=== PATIENT | male | born 1975 | race African-American/Black ===

== ENCOUNTER 2017-11-17 08:29 | Day surgery (SDC) | payer OTHER ==
[2017-11-07 12:40] VITALS: BMI 35.2
--- NOTE | 2017-11-17 10:02 | OP ---
Operative Note - Note: Operative Date: 11/17/17 Pre-Operative Diagnosis: rotator cuff tear Operation: shoulder arthroscopy with rotator cuff tear Implants: swivel lock x2 Post-Operative Diagnosis: Same as Pre-op Surgeon: Steven Soto [employer] Teacher: Elver Cole Anesthesia: General, Fractional Operative Report Dictated: Yes
[2017-11-17] MEDS ORDERED: MIDAZOLAM HCL 2 MG/2 ML SINGLE DOSE VIAL ONE ×2 (10:03→10:25)
[2017-11-17] MEDS ORDERED: DEXAMETHASONE SOD PHOSPHATE/PF 10 MG/ML SDV ONE (10:03)
[2017-11-17] MEDS ORDERED: ROPIVACAINE HCL 0.5% 30ML VIAL ONE (10:03)
[2017-11-17] MEDS ORDERED: PROPOFOL 20 ML ONE ×3 (10:36)
[2017-11-17] MEDS ORDERED: SUCCINYLCHOLINE CHLORIDE 200 MG/10 ML VIAL ONE (10:36)
[2017-11-17] MEDS ORDERED: KETOROLAC TROMETHAMINE 30 MG/1 ML VIAL ONE (10:57)
[2017-11-17] MEDS ORDERED: ceFAZolin SODIUM 1 GM VIAL ONE (10:57)
[2017-11-17] MEDS ORDERED: ONDANSETRON 4 MG/2 ML VIAL ONE (10:57)
[2017-11-17] MEDS ORDERED: DEXAMETHASONE SOD PHOSPHATE 4 MG/1 ML VIAL ONE (10:57)
[2017-11-17] MEDS ORDERED: SODIUM CHLORIDE 0.9% P/F 10 ML VIAL IJ ONE (11:31)
[2017-11-17] MEDS ORDERED: PHENYLEPHRINE HCL 10 MG/1 ML SINGLE DOSE VIAL ONE (11:31)
[2017-11-17] MEDS ORDERED: PROMETHAZINE HCL 25 MG/1 ML VIAL IVPUSH PRN (13:16)
[2017-11-17] MEDS ORDERED: oxyCODONE HCL 5 MG TABLET PO PRN ×2 (13:16)
[2017-11-17] MEDS ORDERED: ONDANSETRON 4 MG/2 ML VIAL IVPUSH PRN (13:16)
[2017-11-17 13:24] VITALS: TEMP 98.2
[2017-11-17] MEDS ORDERED: LACTATED RINGERS SOLUTION 1,000 ML IV SCH (13:30)
--- NOTE | 2017-11-17 13:48 | OP ---
DATE OF OPERATION: 11/17/2017 PREOPERATIVE DIAGNOSIS: Left shoulder subscapularis tear. POSTOPERATIVE DIAGNOSIS: Left shoulder subscapularis tear. PROCEDURE: Left shoulder arthroscopy with subscapularis repair. SURGEON: Steven Partida MD ANESTHESIA: General. POSTOPERATIVE CONDITION: Stable. COMPLICATIONS: None. INDICATIONS: This is a 42-year-old gentleman who is suffering from weakness and shoulder pain after an injury at work. He was initially treated conservatively. However, he continued to have discomfort and weakness and therefore is indicated for operative care. Operative risks were reviewed in detail, including bleeding, infection, neurovascular injury, need for further surgery, postoperative pain and stiffness, re-tear. We discussed the postoperative protocol. I reviewed medical risks such as heart attack, stroke, DVT, PE and . Discussed the option of nonoperative care with persistent weakness and progressive atrophy of the subscapularis. I addressed all the patient's questions and concerns. He voiced understanding and elected to proceed. PROCEDURE: Patient was brought to the operating room where he was placed into the beach-chair position. An LMA was inserted. Care was taken to pad all the bony prominences. The left upper extremity was then prepped and draped in the usual sterile fashion. A preoperative dose of antibiotics given and the usual timeout procedure was performed. The patient had been given a block in the preoperative holding areas as well. Examination of the shoulder demonstrated full range of motion at this point. The standard posterior viewing portal was now established and the arthroscope was passed into the joint. Examination of the glenohumeral joint demonstrated some mild articular surface wear. There was some fraying noted at the superior labrum. The anterior portal was established . The superior labrum was probed, demonstrating some partial tearing without any instability. The anterior aspect of the joint was noted to have some fraying on the anterior labrum without any gross tearing. There was synovitis noted as well. The inferior labrum and posterior labrum were also noted to have some synovitis without any gross tearing. Examining the anterior aspect of the joint, including the subscapularis and rotator cuff interval, there was diffuse scarring of this area. No definite subscapularis was visualized. The biceps tendon appeared unremarkable. The supra and infraspinatus appeared unremarkable. The attention was now turned to repair of the subscapularis. The interval was debrided. Any nonviable tissue was debrided. The free end of the subscapularis was identified. It was freed from the surrounding soft tissue utilizing arthroscopic instruments, including the shaver, blunt probes and electrocautery. Two luggage tag-type sutures were passed in the lower portion of the subscapularis and 1 luggage tag was passed in the superior border. Utilizing the shaver as well as electrocautery, the footprint was debrided down to bleeding bone. The 2nd anterior cannula was now inserted in order to better work with the tissues in this region. This was done anterolateral. The inferior sutures were now loaded on to an anchor. The anchor was punched and inserted in the lower portion of the footprint. This was repeated again for the upper portion of the footprint. At this point, the repair was examined and found to be satisfactory. The arthroscope was now passed into the subacromial space. Dense bursitis was noted. This was debrided. No gross tears were seen of the rotator cuff here. Given the debridement of the interval, there was a large opening where the biceps was visualized. A [id number] suture was placed in order to restore the sioux interval closure. At this point, the excess fluid was withdrawn from the joint. The portals were sutured using 3-0 nylon. Sterile dressings were placed. The patient was extubated and transferred to the recovery room in stable condition. STEVEN PARTIDA M.D. [id number]
[2017-11-17 15:05] VITALS: BP 118/75; PULSE 90
== END 2017-11-17 15:05 | disposition home or self-care (01) ==
LOC: FASU 08:29
PROVIDERS: ATTEND Orthopaedic Surgery Sports Medicine
PROC: 0LQ24ZZ Repair Left Shoulder Tendon, Percutaneous Endoscopic Approach (ICD-10-PCS; principal; 2017-11-17 11:09)
DX: S46.012A Strain of muscle(s) and tendon(s) of the rotator cuff of left shoulder, initial encounter (principal); X58.XXXA Exposure to other specified factors, initial encounter; Y93.89 Activity, other specified; Y92.89 Other specified places as the place of occurrence of the external cause; M65.812 Other synovitis and tenosynovitis, left shoulder
CPT/HCPCS: 94760